=== PATIENT | female | born 1995 | race Two or more races ===

== ENCOUNTER 2016-05-29 22:22 | Emergency (ER) | payer MEDICAID ==
--- NOTE | 2016-05-29 22:27 | ED Physician Chart ---
Chief Complaint/HPI - Patient Information Date Seen:: 05/29/16 Time Seen:: 22:27 Chief Complaint:: armpit pain History of Present Illness:: 20-year-old female complains of acute, intermittent, severe at worst, nonradiating, aching, bilateral, armpit pain times one year. Has associated skin infections underneath the armpits for the past year. Has a history of hydradenitis suppurative. Has used antibiotics orally and topically in the past which helped. Historian:: Patient Review:: Nurse's Note Reviewed Review of Systems - Review of Systems Other: Complete system review otherwise unremarkable except as noted in HPI. Past Medical History - Past Medical History Past Medical History: Other (hydradenitis suppurative) Family History: None Social History: Non Smoker, No Alcohol, No Drug Use, Employed Surgical History: None Psychiatricy History: None Medication: Reviewed Family Medical History - Family Member Mother Sister Ethnicity: Hx Family Cancer: No Hx Family Coronary Artery Disease: No Hx Family Congestive Heart Failure: No Hx Family Hypertension: No Physical Exam - Physical Examination Other:: INITIAL VITAL SIGNS: Reviewed by me GENERAL: Alert and interactive. No acute distress HEAD: Head is normocephalic and atraumatic EYES: EOMI. . No scleral icterus. No conjunctival injection ENT: Moist mucous membranes. NECK: Supple. No masses. Full range of motion RESPIRATORY: No tachypnea. Clear breath sounds bilaterally. No wheezing, rales, or rhonchi CV: Regular rate and rhythm. No murmurs, rubs, or gallops ABDOMEN: Soft, non-distended, non-tender. No guarding. No rebound. No masses. EXTREMITIES: No deformity. No cyanosis. No edema. Bilateral armpits have slight erythema tenderness to palpation. Consistent with small areas of cellulitis. SKIN: Warm and dry. No obvious rashes. NEUROLOGIC: Alert and oriented. Face is symmetric. Speech is normal. Moves all extremities equally. Motor and sensory distally intact. ED Septic Shock - . Is Septic Shock (SBP<90, OR Lactate>4 mmol\L) present?: No Reassessment (Disposition) - Reassessment Reassessment:: Patient has hydradenitis suppurative. We'll prescribe doxycycline oral and clindamycin topical. Follow-up PCP 1-2 days. Gave return to ER precautions. Patient understands and agrees the plan. - Diagnosis Diagnosis:: Hydradenitis suppurative - Aftercare/Follow up Instructions Aftercare/Follow-Up Instructions:: Counseled pt regarding lab results/diagnosis & need follow up, Refer to Discharge Instructions Medication Prescribed:: Doxycycline Clindamycin topical - Patient Disposition Discharge/Transfer:: Home Time:: 22:42 Condition at Disposition:: Improved ED Discharge Plan - Patient Disposition Admit/Discharge/Transfer: PT DISCHARGED HOME Condition at Disposition: Improved Instructions: Rash, [id number]
== END 2016-05-29 23:25 | disposition home or self-care (01) ==
LOC: ER 22:22
DX: L73.2 Hidradenitis suppurativa (principal)
CPT/HCPCS: Z7502